=== PATIENT | female | born 1970 | race Hispanic/Latino ===

== ENCOUNTER 2018-01-21 10:10 | Day surgery (SDC) | payer BC ==
[2018-01-20 13:37] VITALS: BMI 38.7
[2018-01-21] MEDS ORDERED: Oxymetazoline HCl 0.05% ( 15 ML ) ONE ×2 (12:10→13:11)
[2018-01-21] MEDS ORDERED: Lidocaine 1% w/Epinephrine 1:100K 30 ML VIAL ONE (13:11)
[2018-01-21] MEDS ORDERED: Midazolam HCl 2 mg/2 ml Vial ONE (13:41)
[2018-01-21] MEDS ORDERED: Fentanyl 250 MCG/5 ML VIAL ONE (13:41)
[2018-01-21] MEDS ORDERED: Fentanyl 100 MCG/2 ML VIAL ONE (14:59)
[2018-01-21] MEDS ORDERED: Hydrocodone-Acetamin 15 ML UDCUP ONE (16:59)
[2018-01-21] MEDS ORDERED: Dexamethasone 20 MG/5 ML VIAL ONE (17:27)
[2018-01-21] MEDS ORDERED: Lidocaine 1% PF 5 ML VIAL ONE (17:27)
[2018-01-21] MEDS ORDERED: Ondansetron PF 4 MG/2 ML Vial ONE (17:27)
[2018-01-21] MEDS ORDERED: PROPOFOL 200 MG/20 ML VIAL ONE (17:27)
--- NOTE | 2018-01-22 08:28 | OP ---
PREOPERATIVE DIAGNOSES: 1. Chronic rhinosinusitis. 2. Bilateral inferior turbinate hypertrophy. 3. Right nasopharyngeal cyst. 4. Nasal obstruction. POSTOPERATIVE DIAGNOSES: 1. Chronic rhinosinusitis. 2. Bilateral inferior turbinate hypertrophy. 3. Right nasopharyngeal cyst. 4. Nasal obstruction. PROCEDURES PERFORMED: 1. Bilateral endoscopic sinus surgery, total ethmoidectomies. 2. Bilateral endoscopic sinus surgery, maxillary antrostomies. 3. Bilateral endoscopic sinus surgery, frontal sinusotomies. 4. Bilateral inferior turbinate submucosal resection. 5. Endoscopic resection of right nasopharyngeal mass. SURGEON: Chele Bryant M.D. ESTIMATED BLOOD LOSS: 20 mL COMPLICATIONS: None. ANESTHESIA: GETA. PROCEDURE IN DETAIL: The patient was taken to the operating room and placed supine on the table. Ge neral endotracheal anesthesia was obtained by the Anesthesia staff. Tube was secured in the left low er lip. The patient was placed in the beach chair position. Following this, Afrin pledgets were fadia keila in the nasal cavity and the patient was prepped and draped for standard nasal surgery. Following this, the nasal pledgets were removed and 0 degree scope was advanced into the nasal cavity and naso pharynx. A 1% lidocaine with 1:100,000 epinephrine was injected into the inferior turbinates, middle turbinates and lateral nasal wall as well as the right posterior nasopharyngeal area. Following thi s, the 0 degree scope along with the straight Blakesley forceps was used to examine the nasopharynx. There is a 1.5 cm cyst with purulence draining from the right lateral wall. The cyst was removed co mpletely using the straight Blakesley forceps. Following this, the middle turbinates were identified and were gently medialized using the [place] elevator and the uncinate process was identified bilatera lly. Following this, the uncinate process was anteriorly fractured using the ball-ended probe and th en was removed using the 0 degree microdebrider and upbiting Blakesley forceps. Following this, the natural maxillary sinus was identified bilaterally and was gently widened using the curved microdebri devi and straight Blakesley forceps. Following this, the ethmoidal bulla was identified bilaterally a nd was punctured on its medial and inferior aspect and was removed using the microdebrider. Followin g this, the grand lamella was identified and was punctured into the posterior ethmoidal cells bilater ally. Working from posterior to anterior, the ethmoidal cells were opened in a mucosal-sparing techn ique bilaterally using the 0 degree microdebrider, curved microdebrider and Blakesley forceps. Follo wing this, the 40-degree microdebrider blade and the 30-degree endoscope was used to further visualiz e the frontal recess and anterior ethmoidal cells. The cells were further opened using the curved mi crodebrider bilaterally as well as identify the frontal sinus ostia bilaterally, which was widened us ing the curved microdebrider. Following this, the inferior turbinates were punctured on the anterior and inferior aspect using the submucosal microdebrider and submucosal resection was performed of the anterior inferior portions of the inferior turbinates bilaterally. The patient tolerated the proced ure well. The nasal cavity was irrigated. MeroPacks were placed in the nasal cavity.
== END 2018-01-21 18:15 | disposition home or self-care (01) ==
LOC: SDC 10:10
PROVIDERS: ATTEND Otolaryngology Plastic Surgery within the Head & Neck
PROC: 099T8ZZ Drainage of Left Frontal Sinus, Via Natural or Artificial Opening Endoscopic (ICD-10-PCS; principal; 2018-01-21)
PROC: 099Q8ZZ Drainage of Right Maxillary Sinus, Via Natural or Artificial Opening Endoscopic (ICD-10-PCS; principal; 2018-01-21)
PROC: 099R8ZZ Drainage of Left Maxillary Sinus, Via Natural or Artificial Opening Endoscopic (ICD-10-PCS; principal; 2018-01-21)
PROC: 09TL8ZZ Resection of Nasal Turbinate, Via Natural or Artificial Opening Endoscopic (ICD-10-PCS; principal; 2018-01-21)
PROC: 099S8ZZ Drainage of Right Frontal Sinus, Via Natural or Artificial Opening Endoscopic (ICD-10-PCS; principal; 2018-01-21)
PROC: 09BK8ZX Excision of Nasal Mucosa and Soft Tissue, Via Natural or Artificial Opening Endoscopic, Diagnostic (ICD-10-PCS; principal; 2018-01-21)
PROC: 09TU8ZZ Resection of Right Ethmoid Sinus, Via Natural or Artificial Opening Endoscopic (ICD-10-PCS; principal; 2018-01-21)
PROC: 09TV8ZZ Resection of Left Ethmoid Sinus, Via Natural or Artificial Opening Endoscopic (ICD-10-PCS; principal; 2018-01-21)
DX: J32.9 Chronic sinusitis, unspecified (principal); J39.2 Other diseases of pharynx; J34.3 Hypertrophy of nasal turbinates; J34.89 Other specified disorders of nose and nasal sinuses; I10 Essential (primary) hypertension; J45.909 Unspecified asthma, uncomplicated; K21.9 Gastro-esophageal reflux disease without esophagitis; F32.9 Major depressive disorder, single episode, unspecified; F41.9 Anxiety disorder, unspecified; G47.30 Sleep apnea, unspecified; J34.2 Deviated nasal septum; Z79.899 Other long term (current) drug therapy; Z88.8 Allergy status to other drugs, medicaments and biological substances
CPT/HCPCS: 85014; 88305; 96374; 96376; J1100; J2001; J2250; J2405; J2704; J3010